=== PATIENT | female | born 1980 | race Caucasian/White ===

== ENCOUNTER 2016-10-13 17:08 | Emergency (ER) | payer MEDICAID, OTHER ==
[2016-10-13 18:10] VITALS: BP 136/81
[2016-10-13] MEDS ORDERED: NS 0.9% 1000 ML* 1,000 ML BOLUS ONE (18:57)
[2016-10-13] MEDS ORDERED: cefTRIAXone VIAL(*) 1,000 MG in NS 0.9% 50 ML* 50 ML IVPB ONE (18:57)
[2016-10-13] MEDS ORDERED: Ondansetron INJ* 2 MG/ML VIAL IV ONE (18:59)
[2016-10-13] MEDS ORDERED: cefTRIAXone VIAL(*) 1,000 MG VIAL ONE (19:02)
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
[2016-10-13] MEDS ORDERED: Ondansetron ODT TAB* 4 MG PO ONE (19:50)
== END 2016-10-13 20:07 | disposition left against medical advice (07) ==
LOC: MERGE 17:08 → UCCORT 17:08
DX: R11.10 Vomiting, unspecified (principal); R51 Headache; R30.0 Dysuria; E11.9 Type 2 diabetes mellitus without complications; Z79.4 Long term (current) use of insulin; Z53.21 Procedure and treatment not carried out due to patient leaving prior to being seen by health care provider; Z85.43 Personal history of malignant neoplasm of ovary; Z86.61 Personal history of infections of the central nervous system; Z88.1 Allergy status to other antibiotic agents; Z88.5 Allergy status to narcotic agent; Z88.8 Allergy status to other drugs, medicaments and biological substances
CPT/HCPCS: 87086; 99212; A9270-GY; G0463; J0696; J2405

== ENCOUNTER 2017-09-24 19:53 | Emergency (ER) | payer MEDICAID, OTHER ==
[2017-09-24] MEDS ORDERED: NS 0.9% 1000 ML* 1,000 ML BOLUS ONE (20:22)
[2017-09-24] MEDS ORDERED: Morphine INJ* 2 MG/ML 1 ML SYRINGE (TWO MG - NEW SYRINGE VERSION) IV PRN (20:24)
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
[2017-09-24] MEDS ORDERED: Morphine INJ* 2 MG/ML 1 ML SYRINGE (TWO MG - NEW SYRINGE VERSION) IV ONE (20:46)
[2017-09-24 22:03] VITALS: BP 124/68
== END 2017-09-24 21:10 | disposition short-term general hospital (02) ==
LOC: UCEAST 19:53
DX: R10.9 Unspecified abdominal pain (principal); R30.0 Dysuria; R35.0 Frequency of micturition; R39.15 Urgency of urination; Z87.442 Personal history of urinary calculi; K57.92 Diverticulitis of intestine, part unspecified, without perforation or abscess without bleeding; E11.9 Type 2 diabetes mellitus without complications; F41.9 Anxiety disorder, unspecified; F32.9 Major depressive disorder, single episode, unspecified; Z85.43 Personal history of malignant neoplasm of ovary; Z90.710 Acquired absence of both cervix and uterus; Z88.1 Allergy status to other antibiotic agents; Z88.5 Allergy status to narcotic agent; Z88.8 Allergy status to other drugs, medicaments and biological substances
CPT/HCPCS: 96361; 96374; 99213; G0463; J2270

== ENCOUNTER 2017-09-24 21:22 | Emergency (ER) | payer MEDICAID, OTHER ==
[2017-09-24] MEDS ORDERED: NS 0.9% 1000 ML* 1,000 ML IV ONE (21:49)
[2017-09-24] MEDS ORDERED: fentaNYL* 50 MCG/ML 2 ML VIAL (100 MCG VIAL) IV ONE (21:49)
[2017-09-24] MEDS ORDERED: Metoclopramide IV* 5 MG/ML 2 ML VIAL IV ONE (21:49)
[2017-09-24] MEDS ORDERED: diPHENhydraMINE IV* 50 MG/ML 1 ml VIAL (BENADRYL) IV ONE (21:52)
[2017-09-24] MEDS ORDERED: Ondansetron INJ* 2 MG/ML VIAL IV ONE (21:53)
[2017-09-24] MEDS ORDERED: Ondansetron INJ* 2 MG/ML VIAL ONE (21:56)
[2017-09-24 22:47] LABS: ABS Basophils 0.1 10^3/ul (0-0.2); ABS Eosinophils 0.1 10^3/ul (0-0.6); ABS Lymphocytes 3.1 10^3/ul (1.0-4.8); ABS Monocytes 0.8 10^3/ul (0-0.8); ABS Neutrophils 7.2 10^3/ul (1.5-7.7); ABS Nucleated RBC 0 10^3/ul; Hematocrit 38 % (35-47); Hemoglobin 12.5 g/dl (12.0-16.0); Lymphocyte % 27.2 % (25-47); Mean Corpuscular HGB Conc 33 g/dl (31-36); Mean Corpuscular Hemoglobin 29 pg (27-31); Mean Corpuscular Volume 89 fL (80-97); Nucleated Red Blood Cells % 0; Red Blood Count 4.26 10^6/ul (4.0-5.4); Red Cell Distribution Width 15 % (10.5-15); White Blood Count 11.4 10^3/ul (3.5-10.8)
[2017-09-24] MEDS ORDERED: fentaNYL* 50 MCG/ML 2 ML VIAL (100 MCG VIAL) IV SLOW PU ONE (22:48)
[2017-09-24 22:58] LABS: Urine Appearance Clear; Urine Blood 1+ (Negative); Urine Color Yellow; Urine Ketones Negative (Negative); Urine Protein Negative (Negative); Urine Specific Gravity 1.014 (1.010-1.030); Urine Urobilinogen Negative (Negative)
[2017-09-25] MEDS ORDERED: Bisacodyl SUPP* 10 MG SUPP PR ONE (00:11)
[2017-09-25] MEDS ORDERED: Magnesium CITRATE* 300 ML BTL PO ONE (00:11)
[2017-09-25 00:29] VITALS: BP 121/71
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
--- NOTE | 2017-09-25 07:41 | RAD ---
INDICATION: Left flank abdominal pain. COMPARISON: Comparison is made with a prior study from March 31, 2016. TECHNIQUE: A CT scan of the abdomen and pelvis was performed without intravenous or oral contrast. Contiguous axial sections were obtained from the lung bases through the symphysis pubis. Images were reconstructed in the coronal and sagittal planes. FINDINGS: The lung bases are clear. No pleural effusion is present. The liver and spleen are normal size without significant focal abnormality on this noncontrast study. The patient is status post cholecystectomy. The pancreas appears to be within normal limits. The adrenal glands and kidneys are normal in size. There is a 2 mm nonobstructing calculus in the upper pole of the right kidney. No ureteral or bladder calculi are seen. The aorta is normal in caliber without significant calcific plaque. No significant enlarged retroperitoneal lymph nodes are seen. There is a small hiatal hernia. The stomach, small and large bowel appear nondistended. The patient is status post appendectomy by history. There is mild descending and sigmoid diverticulosis without evidence for diverticulitis. The patient is status post hysterectomy. No free intraperitoneal air or fluid is seen. There is bilateral spondylolysis at the L5 level. No other focal osseous abnormalities are seen. IMPRESSION: 1. NO EVIDENCE FOR ACUTE FINDING OR CAUSE FOR THE PATIENT'S ABDOMINAL PAIN IS SEEN. 2. SMALL NONOBSTRUCTING RIGHT RENAL CALCULUS. 3. STATUS POST CHOLECYSTECTOMY, APPENDECTOMY AND HYSTERECTOMY. 4. BILATERAL SPONDYLOLYSIS AT THE L5 LEVEL.
== END 2017-09-25 00:28 | disposition home or self-care (01) ==
LOC: ED 21:22
DX: K59.00 Constipation, unspecified (principal); R10.84 Generalized abdominal pain; R30.0 Dysuria; R31.9 Hematuria, unspecified
CPT/HCPCS: 36415; 74176; 80053; 81003; 81015; 85025; 86140; 96374; 96375; 99283; J1200; J2405; J3010